=== PATIENT | female | born 1985 | race Caucasian/White ===

== ENCOUNTER 2017-10-13 23:54 | Emergency (ER) | payer OTHER ==
[2017-10-13] MEDS ORDERED: AMOXICILLIN 500 MG CAPSULE (FP) PO ONE (23:59)
[2017-10-13] MEDS ORDERED: OFLOXACIN 0.3% OTIC SOLUTION 5 ML BOTTLE AD ONE (23:59)
[2017-10-14 00:04] VITALS: BP 131/93; PULSE 78; TEMP 98; BMI 23.0
--- NOTE | 2017-10-14 00:04 | PDOC ---
History of Present Illness - General Chief Complaint: Pain Stated Complaint: RUPTURED EARDRUM - History of Present Illness Initial Comments: 10/14/17 00:00 32 years old no significant past medical history except for concussion with ruptured TM approximately 3 weeks ago presents to the ED with worsening drainage from her right ear. Patient states that she has had some mild drainage over the last several weeks but worsening over the last few days. Denies fever pain is mild to moderate 5 out of 10 no fever no neck stiffness no rash slight decrease in hearing well-appearing no apparent distress Past History - Past Medical History Allergies/Adverse Reactions: Allergies Allergy/AdvReac Type Severity Reaction Status Date / Time No Known Allergies Allergy Verified 10/14/17 00:00 Home Medications: Ambulatory Orders Amoxicillin - [Amoxicillin 500mg Capsule -] 500 mg PO BID #14 capsule 10/14/17 Ofloxacin Otic [Floxin Otic -] 10 drop OT DAILY 14 Days #1 bottle 10/14/17 COPD: No - Suicide/Smoking/Psychosocial Hx Smoking History: Never smoked Have you smoked in the past 12 months: No Hx Alcohol Use: No Drug/Substance Use Hx: No Substance Use Type: None Review of Systems - Review of Systems Comments:: 10/14/17 00:01 ROS: A complete review of 10 out of 10 review of systems is taken and is negative apart from what is previously mentioned below and in the HPI. *Physical Exam - Physical Exam Comments: 10/14/17 00:01 Vitals: Triage Vital signs reviewed General Appearance: no acute distress, well nourished well developed, Head: Atraumatic, Eyes: Pupils equal reactive round, extraocular movement intact Ears: Right ruptured TM with yellow tinged discharge in the ear canal slight erythema to ear canal no significant pain with palpation and movement of the pinna no mastoid tenderness to palpation. Nose: Nares patent bilaterally;no nasal congestion Cardiac: Regular rate and rhythym, no murmurs, no rubs, no gallops, Lungs: Clear to auscultation bilateral, good air movement bilaterally, Skin: Warm and dry, no rashes or lesions, no rash, no petechiae Psych: normal mood, normal affect General Appearance: Yes: Nourished Medical Decision Making - Medical Decision Making History and examination consistent with chronic superlative inner ear infection secondary to ruptured TM No mastoid tenderness to palpation. Patient well-appearing no apparent distress. We'll treat with 2 week course of ofloxacin otic and 7 day course of amoxicillin by mouth patient instructed to call tomorrow morning for ENT follow- up. Findings, the need for follow-up and strict return instructions discussed with patient. *DC/Admit/Observation/Transfer Diagnosis at time of Disposition: Tympanic membrane rupture, traumatic Qualifiers: Encounter type: sequela Laterality: right Qualified Code(s): S09.21XS - Traumatic rupture of right ear drum, sequela Otitis externa Qualifiers: Otitis externa type: unspecified type Chronicity: acute Laterality: right Qualified Code(s): H60.501 - Unspecified acute noninfective otitis externa, right ear - Discharge Dispostion Disposition: HOME Condition at time of disposition: Stable Decision to Admit order: No - Referrals Referrals: Nate Melgoza MD [Staff Physician] - - Patient Instructions Printed Discharge Instructions: Otitis Externa, DI for Tympanic Membrane Perforation-Adult Additional Instructions: Ofloxacin drops 10 times twice a day to affected ear 2 weeks. Amoxicillin as prescribed. Tomorrow morning follow-up with Dr. Melgoza ENT: The office explained that you have a ruptured TM and were seen in the emergency department for infection and were instructed to see the doctor immediately Return to ED for any severe headache neck stiffness pain to the back of the head severe worsening symptoms or for any concerns. - Post Discharge Activity
[2017-10-14] MEDS ORDERED: AMOXICILLIN 250 MG CAPSULE ONE (00:08)
[2017-10-14] MEDS ORDERED: HEMOQUE TEST 1 EACH EACH ONE ×2 (01:09→01:18)
== END 2017-10-14 00:37 | disposition home or self-care (01) ==
LOC: FER 23:54
DX: S09 Other and unspecified injuries of head (principal); H60.501 Unspecified acute noninfective otitis externa, right ear; X58.XXXS Exposure to other specified factors, sequela; Y93.89 Activity, other specified; Y92.9 Unspecified place or not applicable
CPT/HCPCS: 99282-25

== ENCOUNTER 2018-01-19 21:16 | Emergency (ER) | payer OTHER ==
[2018-01-19 22:08] VITALS: BP 121/88; PULSE 72; TEMP 97.9; BMI 23.3
--- NOTE | 2018-01-19 22:36 | PDOC ---
History of Present Illness - General Chief Complaint: Pain Stated Complaint: LEFT SHOULDER PAIN X 1WK Time Seen by Provider: 01/19/18 21:20 - History of Present Illness Initial Comments: This otherwise healthy 32-year-old woman presents with 1 week history of left upper back/left shoulder soreness and intermittent left distal arm numbness. Patient states that the pain in her upper back/shoulder is worse with movement and lifting/pushing heavy objects. She does not recall any specific trauma but states that she lifts her children and other heavy objects throughout the day. Child's ages range from 2 through 11. Pain is adequately controlled with ibuprofen ([id number]); she denies weakness in the upper extremity but occasionally has numbness in the dorsal aspect of the forearm. She cannot clearly correlate numbness with positioning of the arm. No previous history of numbness; she denies paresthesias or other pain in the distal left upper extremity. No history of neck trauma or chronic neck pain. Past History - Past Medical History Allergies/Adverse Reactions: Allergies Allergy/AdvReac Type Severity Reaction Status Date / Time No Known Allergies Allergy Verified 01/19/18 22:02 Home Medications: Ambulatory Orders Diclofenac Sodium [Voltaren -] 75 mg PO BID PRN #20 tablet. 01/19/18 Ibuprofen [Advil -] 400 mg PO TID PRN 01/19/18 Tizanidine HCl 2 mg PO TID PRN #12 tablet 01/19/18 COPD: No - Suicide/Smoking/Psychosocial Hx Smoking History: Never smoked Have you smoked in the past 12 months: No Hx Alcohol Use: No Drug/Substance Use Hx: No Substance Use Type: None Review of Systems - Review of Systems Able to Perform ROS?: Yes Comments:: 12 point review of systems is negative except for what is noted in the history of present illness *Physical Exam - Vital Signs Last Vital Signs Temp Pulse Resp BP Pulse Ox 97.9 F 72 16 121/88 100 01/19/18 21:17 01/19/18 21:17 01/19/18 21:17 01/19/18 21:17 01/19/18 21:17 - Physical Exam Comments: GENERAL: Adult female, alert and oriented 3, in no acute distress HEAD: Normal with no signs of trauma. EYES: PERRLA, EOMI, sclera anicteric, conjunctiva clear. ENT: Ears normal, nares patent, oropharynx clear without exudates. Moist mucous membranes. NECK: Normal range of motion, supple without lymphadenopathy, JVD, or masses. Tenderness of left trapezius muscle Mild tenderness of the paracervical spinal muscles on the left side LUNGS: Breath sounds equal, clear to auscultation bilaterally. No wheezes, and no crackles. HEART:Regular rate and rhythm, normal S1 and S2 without murmur, rub or gallop. ABDOMEN:.normal bowel sounds No guarding,tenderness or rebound.No masses No distention. EXTREMITIES: Normal range of motion, no edema. No clubbing or cyanosis. No erythema, or tenderness. NEUROLOGICAL: Cranial nerves II through XII grossly intact. Normal speech. No focal neurological deficits. No deficit of fine touch sensation. Motor strength 5/5 throughout MUSCULOSKELETAL: Back non-tender to palpation, no CVA tenderness SKIN: Warm, Dry, normal turgor, no rashes or lesions noted. Medical Decision Making - Medical Decision Making This 32-year-old woman presents with a history of left upper back soreness/pain , worse with exertion and occasional numbness of dorsal portion of her distal left forearm. With patient admits that she frequently strains/overuses her arms and picking up her children and other heavy objects as she goes about her daily housework. She has had no specific trauma or impact to the painful area. Exam as noted. Clinical presentation most consistent with left upper back/ left shoulder strain with moderate muscle spasm in the trapezius and paraspinal cervical muscles on the left side. Neurologic exam shows no focal deficit. She may have an intermittent nerve compression syndrome causing her numbness. Patient advised to avoid overuse/lifting of heavy objects for the next few weeks as much as possible. Prescriptions for diclofenac 75 mg twice a day as well as tizanidine 2 mg up to 3 times a day as needed for muscle spasms sent to her pharmacy. Patient is cautioned that the muscle relaxant will likely make her sleepy and that she cannot perform any activities needing careful attention while taking this medication. If she has persistent pain and/or numbness, she should follow-up with or Dr. Gomes. Referral information for their practice has been provided 01/20/18 02:26 *DC/Admit/Observation/Transfer Diagnosis at time of Disposition: Left shoulder strain Qualifiers: Encounter type: initial encounter Qualified Code(s): S46.912A - Strain of unspecified muscle, fascia and tendon at shoulder and upper arm level, left arm , initial encounter - Discharge Dispostion Disposition: HOME Condition at time of disposition: Stable - Prescriptions Prescriptions: Diclofenac Sodium [Voltaren -] 75 mg PO BID PRN #[address] tablet[address] CABRERA Reason: Moderate Pain Tizanidine HCl 2 mg PO TID PRN #12 tablet PRN Reason: Muscle Spasms - Referrals Referrals: Prakash Corbett MD [Staff Physician] - 1 week - Patient Instructions Printed Discharge Instructions: DI for Muscle Strain Additional Instructions: avoid lifting /pushing/pulling heavy objects for the next 2 weeks Diclofenac 75mg twice a day as needed ; take with food tizanidine 2mg up to 3 times a day for muscle spasms(medication will make you sleepy) local warmth to sore muscles as needed followup with orthopedic group(Dr Corbett) if pain persists - Post Discharge Activity
== END 2018-01-19 22:40 | disposition home or self-care (01) ==
LOC: FER 21:16
DX: S46.912A Strain of unspecified muscle, fascia and tendon at shoulder and upper arm level, left arm, initial encounter (principal); X58.XXXA Exposure to other specified factors, initial encounter; Y93.89 Activity, other specified; Y92.9 Unspecified place or not applicable
CPT/HCPCS: 99282-25

== ENCOUNTER 2018-12-19 23:34 | Emergency (ER) | payer OTHER ==
[2018-12-19 23:41] VITALS: BP 129/89; PULSE 70; TEMP 97.8; BMI 23.1
--- NOTE | 2018-12-20 00:11 | PDOC ---
History of Present Illness - General Chief Complaint: Ear Problem Stated Complaint: RT EAR PAIN Time Seen by Provider: 12/19/18 23:55 History Source: Patient Exam Limitations: No Limitations - History of Present Illness Initial Comments: 12/20/18 00:05 This is a 33-year-old female who comes in complaining of right ear discomfort. Patient has a history of perforated eardrum in the past and said ever since she has had a perforated eardrum that she intermittently has ear infections. Patient denies any fevers and is afebrile here. Patient is otherwise healthy and denies any discharge, sore throat or any other complaints. Allergies: as per nursing notes Past Medical History: none Social history: Lives with family. No smoking. No alcohol. No illicit drugs. Surgical history: None General: No fevers or chills, no weakness, no weight loss HEENT: No change in vision. No sore throat,. + Assessment and plan: Assessment and plan: Ear pain CardioVascular: no chest discomfort. No shortness of breath Respiratory:No cough, or wheezing. Gastrointestinal: no nausea, vomiting, diarrhea or constipation, No rectal bleeding Genitourinary: No dysuria, hematuria, or frequency Musculoskeletal: No joint or muscle pain or swelling Neurologic: No headache, vertigo, dizziness or loss of consciousness Psychiatric: nor depression Skin: No rashes or easy bruising Endocrine: no increased thirst or abnormal weight change Allergic: no skin or latex allergy All other systems reviewed and normal GENERAL: The patient is awake, alert, and fully oriented, in no acute distress. HEAD: Normal with no signs of trauma. EYES: Pupils equal, round and reactive to light, extraocular movements intact, sclera anicteric, conjunctiva clear. Ears: There is a large amount of dark cerumen in the right ear canal however there is no erythema or discharge from the ear canal. A small portion of the tympanic membrane is visualized and appears to be normal. The right ear has a small amount of cerumen and a normal tympanic membrane. EXTREMITIES:atraumatic, Normal range of motion, no edema. NEUROLOGICAL: Normal speech, normal gait. PSYCH: Normal mood, normal affect. SKIN: Warm, Dry, normal turgor, no rashes or lesions noted. Assessment and plan: This is a 33-year-old female with right ear pain. Patient has a normal exam with the exception of excess cerumen. Patient was told to get some Debrox and use it as directed and follow-up with ENT if the Debrox does not take care of the earwax and discomfort. Past History - Past Medical History Allergies/Adverse Reactions: Allergies Allergy/AdvReac Type Severity Reaction Status Date / Time No Known Allergies Allergy Verified 01/19/18 22:02 Home Medications: Ambulatory Orders NK [No Known Home Medication] 12/19/18 COPD: No - Psycho Social/Smoking Cessation Hx Smoking History: Never smoked Have you smoked in the past 12 months: No Hx Alcohol Use: No Drug/Substance Use Hx: No Substance Use Type: None *Physical Exam - Vital Signs Last Vital Signs Temp Pulse Resp BP Pulse Ox 97.8 F 70 16 129/89 100 12/19/18 23:36 12/19/18 23:36 12/19/18 23:36 12/19/18 23:36 12/19/18 23:36 Discharge - Discharge Information Problems reviewed: Yes Clinical Impression/Diagnosis: Right ear pain, Excessive cerumen in right ear canal Condition: Stable Disposition: HOME - Admission No - Follow up/Referral - Patient Discharge Instructions Additional Instructions: Purchase some [id number] Debrox earwax removal kit and use as directed on the box to remove the excess earwax from your right ear. Call an ENT and get an appointment to follow-up next week if the Debrox does not resolve the earwax and discomfort. Tylenol or Motrin as needed for pain. Return to the emergency department immediately with ANY new, persistent or worsening symptoms. Continue any medications as previously prescribed by your physician. You should follow up with your primary doctor as soon as possible regarding today's emergency department visit. . Please make sure your doctor reviews the results of your emergency evaluation. Thank you for coming to the Emergency Department today for your care. It was a pleasure to see you today. Please note that your evaluation is INCOMPLETE until you follow-up with your doctor. - Post Discharge Activity
== END 2018-12-20 00:14 | disposition home or self-care (01) ==
LOC: FER 23:34
PROC: 3E1B78Z Irrigation of Ear using Irrigating Substance, Via Natural or Artificial Opening (ICD-10-PCS; principal; 2018-12-19)
DX: H61.21 Impacted cerumen, right ear (principal); H92.01 Otalgia, right ear
CPT/HCPCS: 69209-50; 99281-25